=== PATIENT | male | born 1995 | race Caucasian/White ===

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

== ENCOUNTER 2017-11-02 06:44 | Day surgery (SDC) | payer OTHER ==
--- NOTE | 2017-11-02 07:56 | Procedure Note ---
Date of procedure: 11/02/17 Pre-op diagnosis: Pilonidal cyst Post-op diagnosis: same Procedure: Operation: Pilonidal cystectomy Description of procedure: GETA was administered with the pt supine on his stretcher. He was then repositioned prone on the OR table. Buttocks were taped apart. Buttocks were clipped, prepped and draped. The skin and SQ tissue of the proposed elliptical excision were infiltrated with 10 ml of 0.5% Marcaine. Skin was incised with the cutting current of the Bovie. The excision was continued all the way down to the presacral fascia. Hemostasis of bleeding was obtained with the coagulating current of the Bovie. The cyst was then excised off of the sacrum. The wound was packed open with a dilute, Betadine moistened Kerlix followed by dry 4 X 4's and Medipore tape. Pt tolerated the procedure well. He was extubated in the OR and was taken to PACU in stable condition. Anesthesia: GETA Surgeon: GERRI BERMEO Estimated blood loss: minimal Pathology: list (Pilonidal cyst) Specimen disposition: to lab Condition: stable Disposition: PACU
--- NOTE | 2017-11-02 08:19 | Anesthesia Consultation ---
Anesthesia Consult and Med Hx Date of service: 11/02/17 - Airway Anesthetic Teeth Evaluation: Good ROM Head & Neck: Adequate Mental/Hyoid Distance: Adequate Mallampati Class: Class I Intubation Access Assessment: Good - Pulmonary Exam CTA: Yes - Cardiac Exam Cardiac Exam: RRR - Pre-Operative Health Status ASA Pre-Surgery Classification: ASA1 Proposed Anesthetic Plan: General - Pulmonary Hx Smoking: No - Other Systems Hx Alcohol Use: No Hx Substance Use: No
--- NOTE | 2017-11-02 08:19 | Anesthesia Day of Surgery ---
Anesthesia Day of Surgery - Day of Surgery Patient Examined: Yes Patient H&P Reviewed: Yes Patient is NPO: Yes
[2017-11-02] MEDS ORDERED: DEMEROL IV PRN (08:22)
[2017-11-02] MEDS ORDERED: ZOFRAN IV PRN (08:22)
[2017-11-02] MEDS ORDERED: TORADOL IV PRN (08:22)
[2017-11-02] MEDS ORDERED: DILAUDID IV PRN ×2 (08:22)
[2017-11-02] MEDS ORDERED: NARCAN 0.4 MG/1 ML IV PRN (08:22)
[2017-11-02] MEDS ORDERED: VERSED IV NR (09:00)
[2017-11-02] MEDS ORDERED: LACTATED RINGERS 1,000 ML IV SCH (09:00)
[2017-11-02] MEDS ORDERED: SUBLIMAZE ONE ×2 (09:41→10:38)
[2017-11-02] MEDS ORDERED: DIPRIVAN 10 MG/ML IV ONE (09:41)
[2017-11-02] MEDS ORDERED: HYDROGEN PEROXIDE ONE (09:42)
[2017-11-02] MEDS ORDERED: ZEMURON IV ONE (09:45)
[2017-11-02] MEDS ORDERED: DECADRON ONE (09:45)
[2017-11-02] MEDS ORDERED: ZOFRAN ONE (09:45)
[2017-11-02] MEDS ORDERED: VERSED ONE (10:00)
[2017-11-02] MEDS ORDERED: ANCEF/STERILE WATER 2 GM/20 ML IV NR (10:00)
[2017-11-02] MEDS ORDERED: HEPARIN SUB-Q NR (10:00)
[2017-11-02] MEDS ORDERED: MARCAINE 0.5% 30 ML INFILTRATI ONE (10:03)
[2017-11-02] MEDS ORDERED: MARCAINE 0.5% INFILTRATI ONE (10:37)
[2017-11-02] MEDS ORDERED: NACL 0.9% IR ONE (10:38)
[2017-11-02] MEDS ORDERED: BLOXIVERZ ONE (10:52)
[2017-11-02] MEDS ORDERED: ROBINUL ONE (10:52)
[2017-11-02] MEDS ORDERED: TORADOL ONE (10:52)
[2017-11-02] MEDS ORDERED: S2 RACEPINEPHRINE 2.25% IH ONE (11:12)
[2017-11-02] MEDS ORDERED: XYLOCAINE MPF 2% ONE ×2 (14:18)
[2017-11-02 16:38] VITALS: BP 106/70
== END 2017-11-02 13:00 | disposition home or self-care (01) ==
LOC: OR 06:44
PROVIDERS: ATTEND Surgery
DX: L05.91 Pilonidal cyst without abscess (principal)
CPT/HCPCS: 11772; 88304; J0690; J1100; J1644; J1885; J2250; J2405; J2704; J2710; J3010; J7120